=== PATIENT | female | born 1940 | race Caucasian/White ===

== ENCOUNTER 2023-11-10 22:46 | Inpatient (IN) | payer MEDICARE, OTHER ==
[2023-11-10 23:47] LABS: Bacteria/HPF None Seen HPF (None Seen); Bilirubin Negative (Negative); Blood, Urine 3+ (Negative); CAUTI Indications for Culture Alt mental st,lethar; Clarity Clear (Clear); Glucose, Urine (Dipstick) Normal (Negative); Ketone, Urine Negative (Negative); Leukocyte Negative Leu/uL (Negative); Nitrite Negative (Negative); Protein, Urine (Dipstick) Negative (Neg-Trace); RBC/HPF Greater than 50 HPF (0-3); Specific Gravity, Urine 1.018 (1.002-1.036); Squamous Epithelial 0-3 HPF (0-3); Urobilinogen 6 mg/dL (Less than 2); WBC/HPF 0-3 HPF (0-3)
[2023-11-10 23:52] LABS: Urine Culture Reflex No No
[2023-11-10 23:53] LABS: Amphetamine Not Detected (NotDetected); Barbiturates Screen Not Detected (NotDetected); Benzodiazepine Screen Not Detected (NotDetected); Cocaine Metabolite Screen Not Detected (NotDetected); Methadone Not Detected (NotDetected); Methamphetamine Not Detected (NotDetected); Opiate Screen Not Detected (NotDetected); Oxycodone Screen Not Detected (NotDetected); Phencyclidine (PCP) Not Detected (NotDetected); THC/Cannabinoid Screen Not Detected (NotDetected); Tricyclic Screen Not Detected (NotDetected)
[2023-11-11 02:25] LABS: Influenza A by NAA Not Detected (NotDetected); Influenza B by NAA Not Detected (NotDetected); SARS-CoV-2 NAA Rapid Test Not Detected (NotDetected)
[2023-11-11 02:47] LABS: #Basophils 0.03 10x3/uL (0.0-0.2); %Basophils 0.6 % (0.0-1.0); %Eosinophils 2.7 % (0.0-10.0); %Lymphocytes 23.5 % (21.0-51.0); %Monocytes 13.4 % (0.0-10.0); %Neutrophils 59.6 % (42.0-75.0); Hematocrit 31.5 % (36.0-47.0); Hemoglobin 10.9 g/dL (12.0-16.0); Mean Corpuscular HGB CONC 34.6 g/dL (32.0-36.0); Mean Platelet Volume 12.5 fL (7.4-10.4); Platelet Count 92 10x3/uL (130-400); RBC Distribution Width 13.6 % (11.5-14.5); Red Blood Cell (RBC) Count 3.03 mill/uL (4.20-5.40)
[2023-11-11 03:07] LABS: ALT (SGPT) 28 U/L (8-55); AST (SGOT) 35 U/L (5-34); Albumin 2.6 g/dL (3.4-4.8); Alkaline Phosphatase 53 U/L (40-110); Anion Gap 12 mmol/L (10-20); BUN (Urea Nitrogen) 27 mg/dL (9.8-20.1); Bilirubin, Total 1.1 mg/dL (0.2-1.2); Calc. Creatinine Clearance 0 mL/min (70-130); Carbon Dioxide 18 mmol/L (23-31); Chloride 112 mmol/L (98-107); Estimated GFR 51; Globulin 3.9 g/dL (2.4-3.5); Glucose 120 mg/dL (83-110); Potassium 3.7 mmol/L (3.5-5.1); Protein, Total 6.5 g/dL (5.8-8.1); Sodium 138 mmol/L (136-145)
[2023-11-11 03:08] LABS: Acetaminophen Less than 10 mcg/mL (10.0-30.0); Alcohol Less than 10.0 mg/dL (Less than 10); CK (CPK) 56 U/L (29-168); Lipase 64 U/L (8-78); Salicylate Less than 8.0 mg/dL (15.0-30.0)
[2023-11-11 03:10] LABS: Macrocytosis SLIGHT = 6-15 cells HPF (0-5); Platelet Adequacy Comment Platelets Decreased
[2023-11-11 03:14] LABS: Troponin I Less than 0.010 ng/mL (< 0.028)
[2023-11-11] MEDS ORDERED: Lactulose 20 GM (30 mL) UDCUP ONE ×3 (03:59→09:29)
[2023-11-11 05:04] VITALS: BMI 23.5
[2023-11-11] MEDS ORDERED: Ondansetron PF 4 MG/2 ML Vial IVP PRN (07:58)
[2023-11-11] MEDS ORDERED: Ondansetron ODT 4 MG TAB PO PRN (07:58)
[2023-11-11] MEDS ORDERED: Acetaminophen 325 MG TAB PO PRN (07:58)
[2023-11-11] MEDS ORDERED: Acetaminophen 650 MG Suppository PR PRN (07:58)
[2023-11-11] MEDS ORDERED: Furosemide 40 MG TAB ONE (09:21)
[2023-11-11] MEDS ORDERED: Enoxaparin 40 MG (0.4 mL) SYRINGE ONE (09:22)
[2023-11-11] MEDS: Spironolactone 25 MG TAB PO SCH (09:39)
[2023-11-11] MEDS: Furosemide 40 MG TAB PO SCH (09:39)
[2023-11-11] MEDS: Enoxaparin 40 MG (0.4 mL) SYRINGE SC SCH (09:39)
[2023-11-11] MEDS: Lactulose 20 GM (30 mL) UDCUP PO SCH ×2 (09:39→18:33)
[2023-11-11] MEDS: Rifaximin 550 MG TAB PO SCH ×2 (18:35→21:40)
[2023-11-11] MEDS: Rifaximin 200 MG TAB PO SCH (18:39)
[2023-11-12 04:26] LABS: #Basophils 0.05 10x3/uL (0.0-0.2); %Basophils 0.8 % (0.0-1.0); %Lymphocytes 26.4 % (21.0-51.0); %Monocytes 21.1 % (0.0-10.0); %Neutrophils 48.5 % (42.0-75.0); Hemoglobin 10.4 g/dL (12.0-16.0); Mean Corpuscular HGB CONC 34.7 g/dL (32.0-36.0); Mean Corpuscular Hemoglobin 36.6 pg (27.0-31.0); Mean Corpuscular Volume 105.6 fL (78.0-98.0); Platelet Count 97 10x3/uL (130-400); RBC Distribution Width 13.6 % (11.5-14.5); Red Blood Cell (RBC) Count 2.84 mill/uL (4.20-5.40)
[2023-11-12] MEDS: Midodrine HCl 5 MG TAB PO SCH (04:29)
[2023-11-12 04:35] LABS: Anion Gap 13 mmol/L (10-20); BUN (Urea Nitrogen) 24 mg/dL (9.8-20.1); Calc. Creatinine Clearance 33 mL/min (70-130); Calcium 8.9 mg/dL (7.8-10.44); Carbon Dioxide 17 mmol/L (23-31); Chloride 110 mmol/L (98-107); Estimated GFR 41; Glucose 117 mg/dL (83-110); Potassium 3.5 mmol/L (3.5-5.1); Sodium 136 mmol/L (136-145)
[2023-11-12 09:57] VITALS: BMI 23.5
[2023-11-12] MEDS ORDERED: Dextrose 5% in Water 1,000 ML IV PRN (10:25)
[2023-11-12] MEDS ORDERED: Dextrose 50% Abboject 50 ML SYRINGE SLOW IVP PRN (10:25)
[2023-11-12] MEDS ORDERED: Glucagon 1 MG/ML KIT IM PRN (10:25)
[2023-11-12] MEDS ORDERED: Insulin Regular, Human 100 UNIT/ML 10 ML VIAL SC PRN ×2 (10:25)
[2023-11-12 12:37] VITALS: BP 118/61; TEMP 98.1
[2023-11-13] MEDS ORDERED: Enoxaparin 30 MG (0.3 mL) SYRINGE SC SCH (09:00)
== END 2023-11-12 15:30 | disposition home or self-care (01) | DRG 443 ==
LOC: ERS 22:46 → 2SE 11-11 03:17 → ERHOLD 11-11 03:59 → 2SE 11-11 14:22
PROVIDERS: ADMIT Student in an Organized Health Care Education/Training Program; ATTEND Internal Medicine
DX: K76.82 Hepatic encephalopathy (principal); K74.60 Unspecified cirrhosis of liver; I10 Essential (primary) hypertension; E11.9 Type 2 diabetes mellitus without complications; Z95.2 Presence of prosthetic heart valve; Z79.899 Other long term (current) drug therapy; Z79.84 Long term (current) use of oral hypoglycemic drugs
CPT/HCPCS: 36415; 36416; 51701; 70450; 71045; 80048; 80053; 80306; 80307; 81001; 82140; 82550; 83690; 84443; 84484; 85025; 87040; 93005; 96360; J1650